=== PATIENT | female | born 1975 | race Caucasian/White ===

== ENCOUNTER → 2016-12-08 | Outpatient (CLI) | payer MEDICAID ==
--- NOTE | 2016-12-09 08:20 | MM ---
Reason for exam: screening (asymptomatic). Last mammogram was performed 1 year ago. History: Family history of breast cancer in maternal aunt at age 48. Took hormonal contraceptives for 1 year beginning at age 23. Physical Findings: A clinical breast exam by your physician is recommended on an annual basis and results should be correlated with mammographic findings. MG Screening Mammo w CAD Bilateral CC and MLO view(s) were taken. Prior study comparison: December 07, 2015, bilateral MG screening mammo w CAD. October 10, 2014, bilateral MG screening mammo w CAD. The breast tissue is extremely dense which could obscure a lesion on mammography. There is no discrete abnormality. ASSESSMENT: Negative, BI-RAD 1 RECOMMENDATION: Routine screening mammogram of both breasts in 1 year.
== END | disposition home or self-care (01) ==
LOC: RADMAMWWP 07:02
PROVIDERS: ATTEND Family Medicine
DX: Z12.31 Encounter for screening mammogram for malignant neoplasm of breast (principal); Z80.3 Family history of malignant neoplasm of breast

== ENCOUNTER → 2018-10-04 | Outpatient (CLI) | payer MEDICAID ==
--- NOTE | 2018-10-07 14:04 | MM ---
Reason for exam: screening (asymptomatic). Last mammogram was performed 1 year and 10 months ago. History: Family history of breast cancer in maternal aunt at age 48. Took hormonal contraceptives for 1 year beginning at age 23. Physical Findings: A clinical breast exam by your physician is recommended on an annual basis and results should be correlated with mammographic findings. MG 3D Screening Mammo W/Cad Bilateral CC and MLO view(s) were taken. Prior study comparison: December 08, 2016, bilateral MG screening mammo w CAD. December 07, 2015, bilateral MG screening mammo w CAD. The breast tissue is heterogeneously dense. This may lower the sensitivity of mammography. No significant changes when compared with prior studies. ASSESSMENT: Benign, BI-RAD 2 RECOMMENDATION: Routine screening mammogram of both breasts in 1 year.
== END | disposition home or self-care (01) ==
LOC: RADMAMWWP 07:43
PROVIDERS: ATTEND Internal Medicine Geriatric Medicine
DX: Z12.31 Encounter for screening mammogram for malignant neoplasm of breast (principal)
CPT/HCPCS: 77063; 77067

== ENCOUNTER 2018-12-31 08:58 | Day surgery (SDC) | payer MEDICAID ==
[2018-12-29 16:01] VITALS: BMI 22.8
[~2018-12-31 08:58] MED LIST: LACTATED RINGERS 1,000 ML IV SCH
[2018-12-31 09:20] VITALS: RESP 16; TEMP 97.8
[2018-12-31] MEDS ORDERED: LIDOCAINE 1% 20 ML VIAL (10MG/ML) FOR IV START INTRADERMA ONE (09:33)
[2018-12-31] MEDS ORDERED: PROPOFOL 10 MG/ML 20 ML VIAL IV ONE (09:37)
--- NOTE | 2018-12-31 09:58 | P.PCN ---
Date of Procedure: 12/31/18 Procedure(s) Performed: BRIEF HISTORY: Patient is a 43-year-old pleasant white female scheduled for an elective colonoscopy as a part of value should change in bowel habits for the last 6 months duration. PROCEDURE PERFORMED: Colonoscopy. PREOPERATIVE DIAGNOSIS: Change in bowel habits. IV sedation per Anesthesia. PROCEDURE: After informed consent was obtained, the patient, was brought into the endoscopy unit. IV sedation was administered by Anesthesia under continuous monitoring. Digital rectal examination was normal. Initially the Olympus CF-160 flexible video colonoscope was then inserted in the rectum, gradually advanced into the cecum without any difficulty. Careful examination was performed as the scope was gradually being withdrawn. Ileocecal valve and the appendiceal orifice were visualized and appeared normal. Prep was excellent. Mucosa of the cecum, ascending colon, transverse colon, descending colon, sigmoid colon, and rectum appeared normal. Retroflexion was performed in the rectum and no lesions were seen. The patient tolerated the procedure well. IMPRESSION: Normal-appearing colon from rectum to cecum with no evidence of colitis or colorectal neoplasia . RECOMMENDATIONS: Findings of this examination were discussed with the patient as well as a family. She was advised to be a high-fiber diet and take fiber supplements a regular basis. She can have a repeat screening colonoscopy in 10 years.
[2018-12-31 10:00] VITALS: PULSE 63
[2018-12-31 10:30] VITALS: BP 112/68
== END 2018-12-31 11:00 | disposition home or self-care (01) ==
LOC: ORWHC2ENDO 08:58
PROVIDERS: ATTEND Internal Medicine Gastroenterology
DX: R19.4 Change in bowel habit (principal); Z88.2 Allergy status to sulfonamides; K21.9 Gastro-esophageal reflux disease without esophagitis; Z79.899 Other long term (current) drug therapy
CPT/HCPCS: 81025; 45378; J2704

== ENCOUNTER 2019-04-22 11:31 | Day surgery (SDC) | payer MEDICAID ==
[2019-04-21 08:27] VITALS: BMI 22.8
[2019-04-22 12:05] VITALS: TEMP 98
[2019-04-22] MEDS ORDERED: LIDOCAINE 1% 20 ML VIAL (10MG/ML) FOR IV START INTRADERMA ONE (12:13)
[2019-04-22] MEDS ORDERED: PROPOFOL 10 MG/ML 20 ML VIAL IV ONE (12:22)
--- NOTE | 2019-04-22 12:28 | P.PCN ---
Date of Procedure: 04/22/19 Procedure(s) Performed: BRIEF HISTORY: Patient is a 43-year-old, pleasant, white female, scheduled for an upper endoscopy as a part of evaluation of excessive belching for the last few months duration. She denies any heartburn. Reports no dysphagia or odynophagia. She denies any nausea vomiting. She has been on Nexium 20 mg daily for few weeks with no help in her symptoms.. PROCEDURE PERFORMED: Esophagogastroduodenoscopy with biopsy. PREOPERATIVE DIAGNOSIS: Excessive Belching. IV sedation per anesthesia. PROCEDURE: After informed consent was obtained, the patient was brought into the endoscopy unit. IV sedation was administered by Anesthesia under continuous monitoring. Initially the Olympus GIF-140 video endoscope was inserted into the mouth. Esophagus intubated without any difficulty. It was gradually advanced into the stomach and duodenum and carefully examined. The bulb and the second part of the duodenum appeared normal. Since were done from the duodenum to rule out celiac disease. The scope at this time was withdrawn to the stomach, adequately insufflated with air, and upon careful examination, mucosa of the antrum had patchy areas of erythema noted in the prepyloric area which was biopsied. The body, cardia and the fundus appeared normal. The scope was then withdrawn into the esophagus. The GE junction was located at 39 cm from the incisors. The esophagus appeared normal. There were no erosions or ulcerations seen and the patient tolerated the procedure well. IMPRESSION: 1. Minimal antral gastritis. 2. No evidence of esophagitis, peptic ulcer disease or gastric outlet obstruction. RECOMMENDATIONS: The findings of this examination were discussed with the patient as well as a family. She was advised to follow with the biopsy results. and she'll continue with Nexium 20 mg daily for repeat follow antireflux measures. She'll be seen in office in 2 months.
[2019-04-22 12:33] VITALS: RESP 18
[2019-04-22 12:49] VITALS: BP 129/79; PULSE 59
== END 2019-04-22 12:59 | disposition home or self-care (01) ==
LOC: ORWHC2ENDO 11:31
PROVIDERS: ATTEND Internal Medicine Gastroenterology
DX: K21.0 Gastro-esophageal reflux disease with esophagitis (principal); K29.50 Unspecified chronic gastritis without bleeding; J45.909 Unspecified asthma, uncomplicated; Z79.899 Other long term (current) drug therapy; Z88.2 Allergy status to sulfonamides
CPT/HCPCS: 81025; 88305; 43239; J2704

== ENCOUNTER → 2020-08-25 | Outpatient (CLI) | payer MEDICAID ==
--- NOTE | 2020-08-25 08:14 | CT ---
EXAMINATION TYPE: CT soft tissue neck w con DATE OF EXAM: 08/25/2020 HISTORY: Pain in throat, pressure and fullness. COMPARISON: NONE CT DLP: 313.3 mGycm. Automated Exposure Control for Dose Reduction was Utilized. TECHNIQUE: CT scan of the neck is performed with IV Contrast, patient injected with 100 mL of Isovue 300, axial images are obtained, coronal and sagittal reformatted images are reviewed. FINDINGS: Airway: Slight roughly 5 mm nodular fullness to the left anterior vallecula posterior tongue base axi al image 56 and sagittal image 38 corresponding to coronal image 25. Epiglottis is not thickened. There is 2.0 cm hypodense left thyroid nodule upper mid pole level coronal image 29. Parotid/submandibular glands: No gross abnormality seen. Carotid/Vascular Structures: No significant abnormality. Osseous Structures: No significant abnormality. Other: Scattered subcentimeter lymph nodes throughout the neck bilaterally. No suspicious greater anni n 1 cm neck adenopathy. For reference 9 x 6 mm left neck lymph node noted axial image 59. The parapharyngeal fat spaces are maintained. IMPRESSION: 1. Slight asymmetric 5 mm posterior tongue base nodular fullness, cannot exclude underlying mucosal m ass. Advise ENT referral. No definitive abnormal neck adenopathy. 2. Abnormal 2.0 cm left thyroid nodule. Advise thyroid ultrasound to further evaluate and characteriz e.
== END | disposition home or self-care (01) ==
LOC: RADCTMAIN 07:27
PROVIDERS: ATTEND Family Medicine
DX: E04.1 Nontoxic single thyroid nodule (principal); K14.8 Other diseases of tongue; K13.79 Other lesions of oral mucosa
CPT/HCPCS: 70491; Q9967

== ENCOUNTER → 2020-09-06 | Outpatient (CLI) | payer MEDICAID ==
[2020-09-06 14:50] LABS: Thyroid Peroxidase Antibodies 29.3 U/mL (0.0-60.0)
== END | disposition home or self-care (01) ==
LOC: LABWHC1 07:37
PROVIDERS: ATTEND Otolaryngology
DX: E04.1 Nontoxic single thyroid nodule (principal)
CPT/HCPCS: 36415; 84443; 86376; 86800

== ENCOUNTER → 2020-09-13 | Day surgery (SDC) | payer MEDICAID ==
--- NOTE | 2020-09-13 13:40 | US ---
ULTRASOUND GUIDED FNA THYROID BIOPSY: CLINICAL HISTORY: Left thyroid nodule FINDINGS: The procedure was explained to the patient. The risks, complications, benefits and alternatives were discussed and any questions were answered. Informed consent was obtained. Patient was placed supin e on the ultrasound table and prepped and draped in the usual sterile fashion. Utilizing a 25 gauge needle, five passes were made into the requested left thyroid nodule. Patient was stable throughout the procedure. Pathology is pending. All elements of maximal barrier technique were utilized. IMPRESSION: 1. Successful ultrasound guided FNA thyroid biopsy. Note is made that the nodule appear to be almost entirely cystic. Fluid aspirated was very viscous. The lack of significant soft tissue component may lower diagnostic yield.
[2020-09-13 13:51] VITALS: BP 117/70; PULSE 74; RESP 18
== END ==
LOC: RADPROMAIN 11:58
PROVIDERS: ATTEND Otolaryngology
DX: E04.1 Nontoxic single thyroid nodule (principal)
CPT/HCPCS: 10005; 88173; 88305

== ENCOUNTER → 2020-12-06 | Outpatient (CLI) | payer MEDICAID ==
--- NOTE | 2020-12-07 11:47 | MM ---
Reason for exam: screening (asymptomatic). Last mammogram was performed 2 years and 2 months ago. History: Family history of breast cancer in maternal aunt at age 48. Took hormonal contraceptives for 1 year beginning at age 23. Physical Findings: A clinical breast exam by your physician is recommended on an annual basis and results should be correlated with mammographic findings. MG Screening Mammo w CAD Bilateral CC, MLO, and XCCL view(s) were taken. Prior study comparison: October 04, 2018, bilateral MG 3d screening mammo w/cad. December 08, 2016, bilateral MG screening mammo w CAD. The breast tissue is heterogeneously dense. This may lower the sensitivity of mammography. There is no discrete abnormality. No significant changes when compared with prior studies. ASSESSMENT: Negative, BI-RAD 1 RECOMMENDATION: Routine screening mammogram of both breasts in 1 year.
== END | disposition home or self-care (01) ==
LOC: RADMAMWWP 07:23
PROVIDERS: ATTEND Family Medicine
DX: Z12.31 Encounter for screening mammogram for malignant neoplasm of breast (principal)
CPT/HCPCS: 77067

== ENCOUNTER → 2021-04-05 | Outpatient (CLI) | payer MEDICAID ==
--- NOTE | 2021-04-05 15:07 | US ---
EXAMINATION TYPE: US thyroid st tissue head/neck DATE OF EXAM: 04/05/2021 COMPARISON: 09/13/2020 CLINICAL HISTORY: 45-year-old female E04.1 Thyroid nodule. TECHNIQUE: Multiple sonographic images of the thyroid gland are obtained. FINDINGS: GLAND SIZE: Right Lobe: 5.0 x 1.3 x 1.5 cm Overall Parenchyma: homogenous Left Lobe: 4.2 x 1.5 x 1.7 cm Overall Parenchyma: homogeneous Isthmus Thickness: 0.2 cm NODULES RIGHT: # of nodules measured on right: 0 LEFT: # of nodules measured on left: 1. 2.4 X 1.4 x 1.5 cm, mid, cystic or almost completely cystic, anechoic nodule, which is wider anni n tall, with smooth margins, without echogenic foci. There is mural based nodularity measuring 1 cm. We note that this was previously aspirated. Prior size: 2.2 x 1.0 x 1.2 cm. ISTHMUS: # of nodules measured in the isthmus: 0 Bilateral neck scanned, no evidence of lymphadenopathy. IMPRESSION: Persistence of a mostly cystic but complex nodule within the left lobe currently measuring slightly l arger at 2.4 x 1.5 x 1.4 cm (versus 2.2 x 1.2 x 1.0 cm). Continued follow-up can be performed. Correl ate with FNA results.
== END | disposition home or self-care (01) ==
LOC: RADUSWWP 09:51
PROVIDERS: ATTEND Otolaryngology
DX: E04.1 Nontoxic single thyroid nodule (principal)
CPT/HCPCS: 76536

== ENCOUNTER → 2021-10-11 | Outpatient (CLI) | payer MEDICAID ==
--- NOTE | 2021-10-11 08:47 | US ---
EXAMINATION TYPE: US thyroid st tissue head/neck DATE OF EXAM: 10/11/2021 COMPARISON: 04/05/2021 CLINICAL HISTORY: E04.1 Thyroid nodule. previous FNA GLAND SIZE: Right Lobe: 4.9x1.7x1.5 cm Overall Parenchyma: homogenous Left Lobe: 4.8x1.8x1.8 cm Overall Parenchyma: homogeneous Isthmus Thickness: 0.2 cm NODULES RIGHT: # of nodules measured on right: 0 LEFT: # of nodules measured on left: 1 1. 2.8 X 1.7 x 1.3 cm, mid mid, mixed cystic and solid, anechoic nodule, which is wider than tall, with smooth margins, without echogenic foci. Prior size: 2.4 x 1.5 x 1.3 cm Mostly cystic with echogenic internal echos. ISTHMUS: # of nodules measured in the isthmus: 0 Bilateral neck scanned, no evidence of lymphadenopathy. Homogeneous normal-sized thyroid redemonstrated with stable predominantly cystic 2.8 cm left thyroid nodule. IMPRESSION: As above. No suspicious new nodules identified.
== END | disposition home or self-care (01) ==
LOC: RADUSWWP 08:07
PROVIDERS: ATTEND Otolaryngology
DX: E04.1 Nontoxic single thyroid nodule (principal)
CPT/HCPCS: 76536

== ENCOUNTER → 2022-01-10 | Outpatient (CLI) | payer MEDICAID ==
--- NOTE | 2022-01-14 13:43 | MM ---
Reason for exam: screening (asymptomatic). Last mammogram was performed 1 year and 1 month ago. History: Patient history of other cancer. Family history of breast cancer in maternal aunt at age 48. Took hormonal contraceptives for 1 year beginning at age 23. Physical Findings: A clinical breast exam by your physician is recommended on an annual basis and results should be correlated with mammographic findings. MG 3D Screening Mammo W/Cad Bilateral CC, MLO, and XCCL view(s) were taken. Prior study comparison: December 06, 2020, bilateral MG screening mammo w CAD. October 04, 2018, bilateral MG 3d screening mammo w/cad. The breast tissue is heterogeneously dense. This may lower the sensitivity of mammography. No significant changes when compared with prior studies. ASSESSMENT: Negative, BI-RAD 1 RECOMMENDATION: Routine screening mammogram of both breasts in 1 year.
== END | disposition home or self-care (01) ==
LOC: RADMAMWWP 07:09
PROVIDERS: ATTEND Family Medicine
DX: Z12.31 Encounter for screening mammogram for malignant neoplasm of breast (principal); Z80.3 Family history of malignant neoplasm of breast
CPT/HCPCS: 77063; 77067

== ENCOUNTER → 2022-10-13 | Outpatient (CLI) | payer MEDICAID ==
--- NOTE | 2022-10-13 09:58 | US ---
EXAMINATION TYPE: US thyroid st tissue head/neck DATE OF EXAM: 10/13/2022 COMPARISON: Multiple US's, most recent dated 10/11/2021 CLINICAL HISTORY: E04.1 Thyroid nodule. GLAND SIZE: Right Lobe: 4.9 x 1.8 x 1.5 cm Overall Parenchyma: homogenous Left Lobe: 4.1 x 1.8 x 2.5 cm Overall Parenchyma: homogeneous Isthmus Thickness: 0.2 cm NODULES RIGHT: # of nodules measured on right: 0 LEFT: # of nodules measured on left: 1 1. 3.1 X 1.6 x 2.0 cm, upper mid, cystic or almost completely cystic, anechoic nodule, which is wid er than tall, with smooth margins, without echogenic foci. Prior size: 2.8 x 1.4 x 1.7 cm ISTHMUS: # of nodules measured in the isthmus: 0 Bilateral neck scanned, no evidence of lymphadenopathy. Homogeneous normal-sized thyroid with grossly stable predominantly cystic nodule left thyroid lobe me asuring near 3.0 cm having irregular thickened wall similar to prior. IMPRESSION: As above. No new nodules are evident. Dominant left-sided Cystic nodule was sampled Novem 2019.
== END | disposition home or self-care (01) ==
LOC: RADUSWWP 09:05
PROVIDERS: ATTEND Otolaryngology
DX: E04.1 Nontoxic single thyroid nodule (principal)
CPT/HCPCS: 76536

== ENCOUNTER → 2022-11-12 | Outpatient (CLI) | payer MEDICAID ==
[2022-11-13 06:24] LABS: Glucose 99 mg/dL (70-110); VLDL Calculation 17.14 mg/dL (5.00-40.00)
== END | disposition home or self-care (01) ==
LOC: LABWHC1 07:21
PROVIDERS: ATTEND Family Medicine
DX: Z00.00 Encounter for general adult medical examination without abnormal findings (principal); K59.09 Other constipation
CPT/HCPCS: 36415; 80061; 82947; 84439; 84443

== ENCOUNTER → 2023-04-20 | Outpatient (CLI) | payer MEDICAID ==
--- NOTE | 2023-04-20 08:58 | US ---
EXAMINATION TYPE: US thyroid st tissue head/neck DATE OF EXAM: 04/20/2023 COMPARISON: Multiple thyroid ultrasounds most recently 10/13/2022 CLINICAL INDICATION: Female, 47 years old with history of E04.1 NONTOXIC THYROID NODULE; single thyro id nodule GLAND SIZE: Right Lobe: 5.1x1.8x1.5 cm Overall Parenchyma: homogenous Left Lobe: 5.8x2.1x2.4 cm Overall Parenchyma: homogeneous Isthmus Thickness: 0.2 cm NODULES RIGHT: # of nodules measured on right: 0 LEFT: # of nodules measured on left: 1 1. 3.5 X 1.5 x 2.4 cm, mid mid, cystic or almost completely cystic, anechoic nodule, which is wider than tall, with smooth margins, without echogenic foci. This has been previously biopsied. Prior size: 3.1 x 1.6 x 2.0 cm ISTHMUS: # of nodules measured in the isthmus: 0 Bilateral neck scanned, single lymph node noted on left anterior lateral neck showing hilar flow: 1.5 x0.4x0.8. This appears benign. IMPRESSION: Stable to marginally increased size of dominant left-sided cystic thyroid nodule which has been previ ously biopsied. No new nodules are identified.
== END | disposition home or self-care (01) ==
LOC: RADUSWWP 08:19
PROVIDERS: ATTEND Otolaryngology
DX: E04.1 Nontoxic single thyroid nodule (principal)
CPT/HCPCS: 76536

== ENCOUNTER → 2023-09-07 | Outpatient (CLI) | payer MEDICAID ==
--- NOTE | 2023-09-07 08:47 | CT ---
EXAMINATION TYPE: CT soft tissue neck wo con CT DLP: 319.2 mGycm, Automated exposure control for dose reduction was used. DATE OF EXAM: 09/07/2023 8:38 AM COMPARISON: Thyroid ultrasound 04/20/2023, CT soft tissue neck 08/25/2020. CLINICAL INDICATION:Female, 48 years old with history of E04.9 goiter; PHH, goiter TECHNIQUE: Standard CT of the neck without demonstration of intravenous contrast. Axial sections wit h coronal and sagittal reformats were obtained. FINDINGS: Limited examination due to lack of intravenous contrast. Brain: Visualized portions are grossly unremarkable. Orbits: Unremarkable Sinuses: Grossly unremarkable. Suprahyoid Neck: The oropharynx, oral cavity, parapharyngeal and retropharyngeal spaces are clear and symmetric. The nasopharynx is unremarkable. Infrahyoid Neck: The larynx, hypopharynx, and supraglottic area are clear and symmetric. Parotid Glands: Unremarkable. Submandibular Glands: Unremarkable. Musculoskeletal: No acute osseous pathology. Lymph nodes: Few nonenlarged lymph nodes are seen along both anterior chains of the neck. Vascular structures: Unremarkable noncontrast appearance Thoracic Inlet/airway: Airway is patent. The lung apices are clear. Soft tissues/Thyroid: Enlarged left hypodense thyroid nodule measuring 2.5 x 3.5 cm corresponding to prior ultrasound. The remainder of the soft tissues are unremarkable. Other: none. IMPRESSION: Limited examination due to lack of intravenous contrast. Left thyroid lobe 3.5 x 2.5 cm nodule corresponding to prior ultrasound 04/20/2023. No other significa nt abnormality identified within limitations described above.
== END | disposition home or self-care (01) ==
LOC: RADCTMAIN 08:05
PROVIDERS: ATTEND Family Medicine
DX: E04.1 Nontoxic single thyroid nodule (principal)
CPT/HCPCS: 70490

== ENCOUNTER → 2023-12-15 | Outpatient (CLI) | payer MEDICAID ==
--- NOTE | 2023-12-15 09:42 | CT ---
EXAMINATION TYPE: CT abdomen w con CT DLP: 432.6 mGycm, Automated exposure control for dose reduction was used. DATE OF EXAM: 12/15/2023 8:23 AM COMPARISON: None. CLINICAL INDICATION:Female, 48 years old with history of R10.13 EPIGASTRIC PAIN; epigastric pain TECHNIQUE: Axial CT abdomen w con;Sagittal and coronal reformats were created on a separate workstat ion. Contrast used:70 mL of Isovue 300 with IV Contrast, (none if empty) Oral contrast used: with Oral Contrast (none if empty) FINDINGS: LOWER CHEST: Right lower lobe calcified granuloma.[id number] ABDOMEN LIVER: Unremarkable GALLBLADDER AND BILE DUCTS: Unremarkable. PANCREAS: Unremarkable. SPLEEN: Scattered calcified granulomas. ADRENAL GLANDS: Unremarkable. KIDNEYS AND URETERS: No evidence of hydronephrosis or renal calculus. The ureters are unremarkable. STOMACH AND BOWEL: No evidence of bowel obstruction. PERITONEUM/RETROPERITONEUM: No evidence of pneumoperitoneum or free fluid. VASCULATURE: No evidence of aortic aneurysm. MUSCULOSKELETAL: No acute osseous abnormalities LYMPH NODES: No gross evidence for lymphadenopathy. SOFT TISSUE/ABDOMINAL WALL: Fat-containing umbilical hernia. IMPRESSION: No evidence for acute abdominal process.
[2023-12-15 14:17] LABS: Clam IgE <0.10 kU/L; Codfish IgE <0.10 kU/L; Egg White IgE <0.10 kU/L; Peanut IgE <0.10 kU/L; Scallop IgE <0.10 kU/L; Shrimp IgE <0.10 kU/L; Soybean IgE <0.10 kU/L; Walnut IgE (Food) 0.44 kU/L
== END | disposition home or self-care (01) ==
LOC: RADCTMAIN 07:35
PROVIDERS: ATTEND Family Medicine
DX: R10.13 Epigastric pain (principal)
CPT/HCPCS: 86003; 82785; 83516 ×2; 74160; Q9967

== ENCOUNTER → 2024-04-13 | Outpatient (CLI) | payer MEDICAID ==
[2024-04-13 15:54] LABS: T4, Free (Free Thyroxine) 1.09 ng/dL (0.80-1.80)
== END | disposition home or self-care (01) ==
LOC: LABWHC1 08:15
PROVIDERS: ATTEND Student in an Organized Health Care Education/Training Program
DX: E04.1 Nontoxic single thyroid nodule (principal)
CPT/HCPCS: 36415; 84439; 84443

== ENCOUNTER 2024-08-03 07:57 | Emergency (ER) | payer MEDICAID ==
[2024-08-03 08:02] VITALS: RESP 16
--- NOTE | 2024-08-03 08:24 | ED ---
Abdominal Pain HPI - General Chief Complaint: Abdominal Pain Stated Complaint: lower left side/leg pain Time Seen by Provider: 08/03/24 08:04 Source: patient, RN notes reviewed Mode of arrival: ambulatory Limitations: no limitations - History of Present Illness Initial Comments: 49-year-old female presents emergency department complaint of left lower avel drant abdominal pain. Patient states started this morning. She states that does wax and wane. She states it is nonradiating nothing makes it feel better or worse. Patient states he had a bowel movement this morning without any difficulty no dysuria no hematuria denies fevers or chills no prior abdominal surgeries no prior bowel infections. - Related Data Home Medications Medication Instructions Recorded Confirmed Albuterol Inhaler [Ventolin Hfa 1 - 2 puff INHALATION RT-Q6H PRN 04/21/19 09/13/20 Inhaler] Montelukast [Singulair] 10 mg PO HS 04/21/19 09/13/20 Cetirizine HCl [Zyrtec] 10 mg PO DAILY 09/04/20 09/13/20 Previous Rx's Medication Instructions Recorded Amoxic-Pot Clav 875-125Mg 1 tab PO Q12HR #20 tab 08/03/24 [Augmentin 875-125] Allergies Allergy/AdvReac Type Severity Reaction Status Date / Time Sulfa (Sulfonamide Allergy Rash/Hives Verified 08/03/24 07:58 Antibiotics) Review of Systems ROS Statement: Those systems with pertinent positive or pertinent negative responses have been documented in the HPI. ROS Other: All systems not noted in ROS Statement are negative. Past Medical History Past Medical History: Asthma, GERD/Reflux, Thyroid Disorder Additional Past Medical History / Comment(s): HX ASTHMA History of Any Multi-Drug Resistant Organisms: None Reported Additional Past Surgical History / Comment(s): HX ORAL SX, colonoscopy, partial thyroidectomy Past Anesthesia/Blood Transfusion Reactions: No Reported Reaction Past Psychological History: No Psychological Hx Reported Smoking Status: Never smoker Past Alcohol Use History: Occasional Past Drug Use History: None Reported - Past Family History Mother Family Medical History: No Reported History General Exam Limitations: no limitations General appearance: alert, in no apparent distress Head exam: Present: atraumatic, normocephalic, normal inspection Eye exam: Present: normal appearance, PERRL, EOMI. Absent: scleral icterus, conjunctival injection, periorbital swelling Neck exam: Present: normal inspection. Absent: tenderness, meningismus, lymphadenopathy Respiratory exam: Present: normal lung sounds bilaterally. Absent: respiratory distress, wheezes, rales, rhonchi, stridor Cardiovascular Exam: Present: regular rate, normal rhythm, normal heart sounds. Absent: systolic murmur, diastolic murmur, rubs, gallop, clicks GI/Abdominal exam: Present: soft, tenderness (Moderate left lower quadrant tenderness), normal bowel sounds. Absent: distended, guarding, rebound, rigid Back exam: Absent: CVA tenderness (R), CVA tenderness (L) Neurological exam: Present: alert, oriented X3 Course Vital Signs 08/03/24 08/03/24 07:58 10:46 Temperature 97.3 F L 97.7 F Pulse Rate 76 70 Respiratory 16 16 Rate Blood Pressure 120/73 116/67 O2 Sat by Pulse 100 100 Oximetry Medical Decision Making - Medical Decision Making Was pt. sent in by a medical professional or institution (, PA, HOTEL RESERVATION AGENT, urgent care, hospital, or residential...) When possible be specific @ -No Did you speak to anyone other than the patient for history (EMS, parent, family, police, friend...)? What history was obtained from this source @ -No Did you review nursing and triage notes (agree or disagree)? Why? @ -I reviewed and agree with nursing and triage notes Were old charts reviewed (outside hosp., previous admission, EMS record, old EKG, old radiological studies, urgent care reports/EKG's, residential records)? Report findings @ -No old charts were reviewed Differential Diagnosis (chest pain, altered mental status, abdominal pain women, abdominal pain men, vaginal bleeding, weakness, fever, dyspnea, syncope, headache, dizziness, GI bleed, back pain, seizure, CVA, palpatations, mental health, musculoskeletal)? @ -Differential Abdominal Pain Women: Appendicitis, Cholecystitis, diverticulosis, ischemic bowel, pancreatitis, hepatitis, UTI, gastroenteritis, AAA, incarcerated hernia, bowel obstruction, constipation, inflammatory bowel, hepatitis, peptic ulcer disease, splenic infarction, perforated viscus, vulvitis, ovarian torsion, PID, kidney stone, placenta abruption, this is not meant to be an all-inclusive list EKG interpreted by me (3pts min.). @ -None X-rays interpreted by me (1pt min.). @ -None done CT interpreted by me (1pt min.). @ -CT abdomen pelvis showing evidence of colitis, ovarian cyst left with noted fluid U/S interpreted by me (1pt. min.). @ -Ultrasound shows 2 left ovarian cysts without evidence of torsion What testing was considered but not performed or refused? (CT, X-rays, U/S, labs)? Why? @ -None What meds were considered but not given or refused? Why? @ -None Did you discuss the management of the patient with other professionals (professionals i.e. , PA, HOTEL RESERVATION AGENT, lab, RT, psych nurse, geriatric social worker, landfill gas collection system operator, teacher, freedom of information officer, social work case manager)? Give summary @ -No Was smoking cessation discussed for >3mins.? @ -No Was critical care preformed (if so, how long)? @ -No Were there social determinants of health that impacted care today? How? (Homelessness, low income, unemployed, alcoholism, drug addiction, transportation, low edu. Level, literacy, decrease access to med. care, nursing home, rehab)? @ -No Was there de-escalation of care discussed even if they declined (Discuss DNR or withdrawal of care, Hospice)? DNR status @ -No What co-morbidities impacted this encounter? (DM, HTN, Smoking, COPD, CAD, Can cer, CVA, ARF, Chemo, Hep., AIDS, mental health diagnosis, sleep apnea, morbid obesity)? @ -None Was patient admitted / discharged? Hospital course, mention meds given and route, prescriptions, significant lab abnormalities, going to OR and other pertinent info. @Discharge patient has ovarian cyst on left laboratory studies unremarkable patient did have evidence of colitis concerning for infectious colitis was started on Augmentin. Undiagnosed new problem with uncertain prognosis? @ -No Drug Therapy requiring intensive monitoring for toxicity (Heparin, Nitro, Insulin, Cardizem)? @ -No Were any procedures done? @ -No Diagnosis/symptom? @ -Ovarian cyst, colitis Acute, or Chronic, or Acute on Chronic? @ -Acute Uncomplicated (without systemic symptoms) or Complicated (systemic symptoms)? @ -Complicated Side effects of treatment? @ -No Exacerbation, Progression, or Severe Exacerbation? @ -No Poses a threat to life or bodily function? How? (Chest pain, USA, AR, pneumonia, PE, COPD, DKA, ARF, appy, cholecystitis, CVA, Diverticulitis, Homicidal, Suicidal, threat to staff... and all critical care pts) @ -No - Lab Data Result diagrams: 08/03/24 08:24 08/03/24 08:24 Lab Results 08/03/24 08/03/24 08/03/24 Range/Units 08:24 08:24 08:24 WBC 7.2 (3.8-10.6) k/uL RBC 3.74 L (3.80-5.40) m/uL Hgb 12.7 (11.4-16.0) gm/dL Hct 38.4 (34.0-46.0) % MCV 102.7 H (80.0-100.0) fL MCH 33.8 (25.0-35.0) pg MCHC 33.0 (31.0-37.0) g/dL RDW 11.7 (11.5-15.5) % Plt Count 301 (150-450) k/uL MPV 7.4 Neutrophils % 73 % Lymphocytes % 19 % Monocytes % 4 % Eosinophils % 2 % Basophils % 0 % Neutrophils # 5.2 (1.3-7.7) k/uL Lymphocytes # 1.4 (1.0-4.8) k/uL Monocytes # 0.3 (0-1.0) k/uL Eosinophils # 0.2 (0-0.7) k/uL Basophils # 0.0 (0-0.2) k/uL Sodium 137 (137-145) mmol/L Potassium 4.3 (3.5-5.1) mmol/L Chloride 105 (98-107) mmol/L Carbon Dioxide 27 (22-30) mmol/L Anion Gap 5 mmol/L BUN 22 H (7-17) mg/dL Creatinine 0.72 (0.52-1.04) mg/dL Est GFR (CKD-EPI)AfAm >90 (>60 ml/min/1.73 sqM) Est GFR (CKD-EPI)NonAf >90 (>60 ml/min/1.73 sqM) Glucose 133 H (74-99) mg/dL Plasma Lactic Acid Noel 0.7 (0.7-2.0) mmol/L Calcium 8.9 (8.4-10.2) mg/dL Total Bilirubin 0.4 (0.2-1.3) mg/dL AST 18 (14-36) U/L ALT 12 (4-34) U/L Alkaline Phosphatase 43 (38-126) U/L Total Protein 6.5 (6.3-8.2) g/dL Albumin 3.9 (3.5-5.0) g/dL Lipase 121 (23-300) U/L Urine Color Urine Appearance (Clear) Urine pH (5.0-8.0) Ur Specific [place] (1.001-1.035) Urine Protein (Negative) Urine Glucose (UA) (Negative) Urine Ketones (Negative) Urine Blood (Negative) Urine Nitrite (Negative) Urine Bilirubin (Negative) Urine Urobilinogen (<2.0) mg/dL Ur Leukocyte Esterase (Negative) 08/03/24 Range/Units 08:29 WBC (3.8-10.6) k/uL RBC (3.80-5.40) m/uL Hgb (11.4-16.0) gm/dL Hct (34.0-46.0) % MCV (80.0-100.0) fL MCH (25.0-35.0) pg MCHC (31.0-37.0) g/dL RDW (11.5-15.5) % Plt Count (150-450) k/uL MPV Neutrophils % % Lymphocytes % % Monocytes % % Eosinophils % % Basophils % % Neutrophils # (1.3-7.7) k/uL Lymphocytes # (1.0-4.8) k/uL Monocytes # (0-1.0) k/uL Eosinophils # (0-0.7) k/uL Basophils # (0-0.2) k/uL Sodium (137-145) mmol/L Potassium (3.5-5.1) mmol/L Chloride (98-107) mmol/L Carbon Dioxide (22-30) mmol/L Anion Gap mmol/L BUN (7-17) mg/dL Creatinine (0.52-1.04) mg/dL Est GFR (CKD-EPI)AfAm (>60 ml/min/1.73 sqM) Est GFR (CKD-EPI)NonAf (>60 ml/min/1.73 sqM) Glucose (74-99) mg/dL Plasma Lactic Acid Noel (0.7-2.0) mmol/L Calcium (8.4-10.2) mg/dL Total Bilirubin (0.2-1.3) mg/dL AST (14-36) U/L ALT (4-34) U/L Alkaline Phosphatase (38-126) U/L Total Protein (6.3-8.2) g/dL Albumin (3.5-5.0) g/dL Lipase (23-300) U/L Urine Color Colorless Urine Appearance Clear (Clear) Urine pH 6.0 (5.0-8.0) Ur Specific [place] 1.026 (1.001-1.035) Urine Protein Negative (Negative) Urine Glucose (UA) Negative (Negative) Urine Ketones Negative (Negative) Urine Blood Negative (Negative) Urine Nitrite Negative (Negative) Urine Bilirubin Negative (Negative) Urine Urobilinogen <2.0 (<2.0) mg/dL Ur Leukocyte Esterase Negative (Negative) Disposition Clinical Impression: Colitis, Ovarian cyst Disposition: HOME SELF-CARE Condition: Stable Instructions (If sedation given, give patient instructions): Ovarian Cyst (ED), Colitis (ED) Additional Instructions: Please return to the Emergency Department if symptoms worsen or any other concerns. Prescriptions: Amoxic-Pot Clav 875-125Mg [Augmentin 875-125] 1 tab PO Q12HR #20 tab Is patient prescribed a controlled substance at d/c from ED?: No Referrals: Ruben Wu DO [Primary Care Provider] - 1-2 days Time of Disposition: 10:55
[2024-08-03] MEDS: KETOROLAC 15 MG/ML 1 ML VIAL IVP STA (08:29)
[2024-08-03] MEDS: SODIUM CHLORIDE 0.9% 1,000 ML IV STA (08:29)
[2024-08-03] MEDS: SODIUM CHLORIDE 0.9% 500 ML 500 ML IV STA (08:29)
[2024-08-03 08:33] LABS: Basophils % (A) 0 %; Eosinophils # (A) 0.2 k/uL (0-0.7); Eosinophils % (A) 2 %; HCT 38.4 % (34.0-46.0); HGB 12.7 gm/dL (11.4-16.0); Lymphocytes # (A) 1.4 k/uL (1.0-4.8); Lymphocytes % (A) 19 %; MCH 33.8 pg (25.0-35.0); MCV 102.7 fL (80.0-100.0); Mean Platelet Volume 7.4; Monocytes # (A) 0.3 k/uL (0-1.0); Monocytes % (A) 4 %; Neutrophils # (A) 5.2 k/uL (1.3-7.7); Neutrophils % (A) 73 %; Platelet Count 301 k/uL (150-450); RBC 3.74 m/uL (3.80-5.40); RDW 11.7 % (11.5-15.5); WBC 7.2 k/uL (3.8-10.6)
[2024-08-03 08:46] LABS: ALT 12 U/L (4-34); AST 18 U/L (14-36); African American GFR (CKD) >90 (>60 ml/min/1.73 sqM); Albumin 3.9 g/dL (3.5-5.0); Alkaline Phosphatase 43 U/L (38-126); Anion Gap 5 mmol/L; Blood Urea Nitrogen 22 mg/dL (7-17); Calcium 8.9 mg/dL (8.4-10.2); Carbon Dioxide 27 mmol/L (22-30); Chloride 105 mmol/L (98-107); Glucose 133 mg/dL (74-99); Lipase 121 U/L (23-300); Non-African American GFR(CKD) >90 (>60 ml/min/1.73 sqM); Potassium 4.3 mmol/L (3.5-5.1); Sodium 137 mmol/L (137-145); Total Bilirubin 0.4 mg/dL (0.2-1.3); Total Protein 6.5 g/dL (6.3-8.2)
--- NOTE | 2024-08-03 09:20 | CT ---
EXAMINATION TYPE: CT abdomen pelvis w con DATE OF EXAM: 08/03/2024 COMPARISON: 12/15/2023 HISTORY: 49-year-old female with left lower quadrant pain TECHNIQUE: Contiguous axial scanning of the abdomen and pelvis following administration of 100 ml Iso jason 300 IV contrast. Delayed images through the kidneys and coronal/sagittal reconstructions perform ed. CT DLP: 692.9 mGycm Automated exposure control for dose reduction was used. FINDINGS: Heart normal size without pericardial effusion. Lung bases clear without pleural effusion. Liver borderline in size at 17.7 cm. No focal lesion seen. Portal venous system is patent. No blurry ductal dilatation. Gallbladder, adrenal glands, kidneys, and pancreas within normal limits. Unchanged 1.7 cm hypodensity superior aspect of the spleen. Stability from 12/15/2023 suggests a benig n etiology. Possibly a cyst or hemangioma. No dilated small bowel or free air. Normal appendix. There is mild overall stool burden with mild to moderate circumferential wall thicke estefani extending to involve nearly the entire colon, greatest degree wall thickening around the splenic flexure. There is mild pelvic free fluid. Uterus is anteverted. Heterogeneous myometrial enhancement may be physiologic. Findings could reflect diffuse small fibroid change or adenomyosis as well. Within the left ovary measuring 3.7 cm and 1.9 cm there is no pelvic lymphadenopathy seen. Bones: Moderate degenerative disc disease at L5-S1. IMPRESSION: 1. CORRELATE FOR AN INFECTIOUS OR INFLAMMATORY MILD TO MODERATE PANCOLITIS. 2. MILD PELVIC FREE FLUID MAY BE REACTIVE TO THE COLON INFLAMMATION OR COULD BE PHYSIOLOGIC. 3. 2 CYSTS WITHIN THE LEFT OVARY MEASURING 3.7 AND 1.9 CM. IF PERSISTENT LEFT LOWER QUADRANT PAIN, PE LVIC ULTRASOUND WITH OVARIAN VESSEL DOPPLERS CAN BE CONSIDERED. OTHERWISE, PELVIC ULTRASOUND IN 6-8 W EEKS TO ENSURE INVOLUTION OF THESE CYSTS. [facility], , 08/03/2024 9:18 AM
[2024-08-03 09:30] LABS: Appearance,Urine Clear (Clear); Bilirubin,Urine Negative (Negative); Blood,Urine Negative (Negative); Color,Urine Colorless; Glucose,Urine (UA) Negative (Negative); Ketones,Urine Negative (Negative); Leukocyte Esterase,Urine Negative (Negative); Nitrite,Urine Negative (Negative); Protein,Urine Negative (Negative); Specific Gravity,Urine 1.026 (1.001-1.035); Urobilinogen,Urine <2.0 mg/dL (<2.0)
--- NOTE | 2024-08-03 10:32 | US ---
EXAMINATION TYPE: US transvaginal DATE OF EXAM: 08/03/2024 COMPARISON: NONE CLINICAL INDICATION: Female, 49 years old with history of Left-sided pain, cyst; Lt ovarian cyst foll ow up to ct scan. TECHNIQUE: Transvaginal (TV). FINDINGS: EXAM MEASUREMENTS: Uterus: 9.0 x 5.0 x 5.7 cm Endometrial Stripe: 1.2 cm Right Ovary: 2.6 x 1.4 x 2.8 cm Left Ovary: 3.6 x 4.5 x 3.9 cm 1. Uterus: Anteverted nabothian cysts seen 2. Endometrium: 4mm area of fluid visualized . 3. Right Ovary: wnl 4. Left Ovary: 2 anechoic areas seen 2.7 x 2.2 x 2.5 cm and 2.0 x 2.2 x 1.7 cm. Spectral, color and waveform doppler imaging shows good arterial and venous flow within the ovaries ; there is no evidence for ovarian torsion. 5. Bilateral Adnexa: wnl 6. Posterior cul-de-sac: wnl IMPRESSION: 1. Left ovarian cysts. No evidence for torsion at this time. [facility], , 08/03/2024 10:29 AM
[2024-08-03 10:47] VITALS: BP 116/67; PULSE 70; TEMP 97.7
== END 2024-08-03 11:06 | disposition home or self-care (01) ==
LOC: EC 07:57
CPT/HCPCS: 36415; 74177; 76830; 80053; 81003; 83605; 83690; 85025; 93975; 96361; 96374; 99284

== ENCOUNTER → 2024-09-06 | Outpatient (CLI) | payer MEDICAID ==
--- NOTE | 2024-09-06 08:48 | CT ---
EXAMINATION TYPE: CT soft tissue neck w con DATE OF EXAM: 09/06/2024 8:40 AM COMPARISON: 09/07/2023. CLINICAL INDICATION: Female, 49 years old with history of E04.1 NONTOXIC SINGLE THYROID NODULE; PHH, pressure in throat TECHNIQUE: Standard enhanced CT of the neck. Axial sections with coronal and sagittal reformats were obtained. Contrast used:65 mL of Isovue 370 with IV Contrast, (None if empty) Oral contrast used: (None if empty) CT DLP: 358.2 mGycm, Automated exposure control for dose reduction was used. FINDINGS: Brain: Visualized portions are grossly unremarkable. Orbits: Unremarkable Sinuses: Grossly unremarkable. Spaces of the neck: Clear and symmetric. Surgical clips in the left neck. The left thyroid gland is s urgically absent. No remaining mass or nodule is visualized. Musculoskeletal: No acute osseous pathology. Lymph nodes: Multiple nonenlarged lymph nodes are seen along both anterior chains of the neck. Vascular structures: Visualized major arteries are patent without evidence of aneurysm. Thoracic Inlet/airway: Airway is patent. The lung apices are clear. Soft tissues/Thyroid: Thyroid and remainder of the soft tissues are unremarkable. Other: none. IMPRESSION No evidence for mass. No lymphadenopathy. [facility], , 09/06/2024 8:45 AM
== END | disposition home or self-care (01) ==
LOC: RADCTMAIN 08:20
PROVIDERS: ATTEND Family Medicine
DX: E04.1 Nontoxic single thyroid nodule (principal); N83.202 Unspecified ovarian cyst, left side; R07.0 Pain in throat
CPT/HCPCS: 70491; Q9967

== ENCOUNTER → 2024-11-14 | Outpatient (CLI) | payer MEDICAID ==
--- NOTE | 2024-11-14 10:58 | US ---
EXAMINATION TYPE: US pelvic complete DATE OF EXAM: 11/14/2024 COMPARISON: US and CT: 08/03/24 CLINICAL INDICATION: Female, 49 years old with history of N83.202 UNSPECIFIED OVARIAN CYST, LEFT SIDE ; left ovarian cyst. Pt is not having pain anymore. TECHNIQUE: Transabdominal (TA). Doppler imaging: Not performed. FINDINGS: Date of LMP: 10/31/24 EXAM MEASUREMENTS: Uterus: 9.8 x 5.9 x 3.1 cm Endometrial Stripe: 0.28 cm Right Ovary: 2.3 x 2.1 x 1.4 cm Left Ovary: 3.2 x 2.0 x 1.4 cm 1. Uterus: Anteverted wnl 2. Endometrium: wnl 3. Right Ovary: wnl 4. Left Ovary: small cystic area probable dominant follicle measuring 0.7cm 5. Bilateral Adnexa: wnl 6. Posterior cul-de-sac: wnl IMPRESSION: Interval resolution of the 2 thin-walled cysts in the left ovary on prior study measuring between 2 to 3 cm in size. [facility], , 11/14/2024 10:56 AM
== END | disposition home or self-care (01) ==
LOC: RADUSWWP 10:23
PROVIDERS: ATTEND Family Medicine
DX: N83.202 Unspecified ovarian cyst, left side (principal); E04.1 Nontoxic single thyroid nodule
CPT/HCPCS: 76856

== ENCOUNTER → 2025-01-20 | Outpatient (CLI) | payer MEDICAID ==
--- NOTE | 2025-01-20 15:34 | MM ---
Reason for Exam: Screening (asymptomatic). Last mammogram was performed 2 year(s) and 0 month(s) ago. Patient History: Menarche at age 14. First Full-Term at age 22. Premenopausal. Other cancer. Hormonal Contraceptives, starting at age 23 for 1 year. Maternal aunt had breast cancer, age 48. Risk Values: Makayla 5 year model risk: 0.8%. NCI Lifetime model risk: 7.5%. Prior Study Comparison: 12/06/2020 Bilateral Screening Mammogram, [facility]. 01/10/2022 Bilateral Screening Mammogram, [facility]. 12/29/2022 Bilateral MG 3D screening mammo w/cad, [facility]. Tissue Density: The breasts are heterogeneously dense, which may obscure small masses. Findings: Analyzed By CAD. There is no suspicious group of microcalcifications or new suspicious mass in either breast. Overall Assessment: Benign, BI-RAD 2 Management: Screening Mammogram of both breasts in 1 year. . Patient should continue monthly self-breast exams. A clinical breast exam by your physician is recommended on an annual basis. This exam should not preclude additional follow-up of suspicious palpable abnormalities. Note on Makayla scores and lifetime risk: 1. A Makayla score greater than 3% is considered moderate risk. If this is the case, consider specialist referral to assess eligibility for a risk reducing agent. 2. If overall lifetime risk for the development of breast cancer is 20% or higher, the patient may qualify for future screening with alternating mammogram and breast MRI. [facility], , 01/20/2025 3:31 PM. Electronically signed and approved by: Giovanni Busby M.D. Radiolog[facility]
== END | disposition home or self-care (01) ==
LOC: RADMAMWWP 15:09
PROVIDERS: ATTEND Family Medicine
DX: Z12.31 Encounter for screening mammogram for malignant neoplasm of breast (principal); R92.333 Mammographic heterogeneous density, bilateral breasts; Z92.0 Personal history of contraception; Z80.3 Family history of malignant neoplasm of breast
CPT/HCPCS: 77063; 77067